=== PATIENT | male | born 1995 | race Caucasian/White ===

== ENCOUNTER 2019-02-25 16:00 | Emergency (ER) | payer MEDICAID ==
[~2019-02-25] VITALS: Ht 180.3 cm; Wt 73.0 kg
[2019-02-25 16:13] VITALS: Ht 180.3 cm; Wt 73.0 kg
[2019-02-25 18:53] VITALS: BP 126/81
== END 2019-02-25 18:53 | disposition home or self-care (01) ==
LOC: ED 16:00
DX: K22.4 Dyskinesia of esophagus (principal)